=== PATIENT | male | born 1965 | race Caucasian/White ===

== ENCOUNTER 2023-04-16 22:14 | Emergency (ER) | payer OTHER ==
[2023-04-17] MEDS ORDERED: Ibuprofen 800 MG TAB ONE
== END 2023-04-17 00:11 | disposition home or self-care (01) ==
LOC: NAV ERS 22:14
DX: S92.402A Displaced unspecified fracture of left great toe, initial encounter for closed fracture (principal); W22.8XXA Striking against or struck by other objects, initial encounter
CPT/HCPCS: 99283